=== PATIENT | female | born 1945 | race Caucasian/White ===

== ENCOUNTER → 2016-06-10 | Outpatient (CLI) | payer OTHER, MEDICARE | LOC: BHFA 14:30 | PROVIDERS: ATTEND Internal Medicine Cardiovascular Disease | DX: R06.09 Other forms of dyspnea (principal) ==

== ENCOUNTER → 2016-08-11 | Outpatient (CLI) | payer OTHER, MEDICARE ==
[~2016-08-11] MED LIST: IOPAMIDOL (ISOVUE-300) 100 ML BTL IV ONE
== END ==
LOC: FIMAGING 13:27
PROVIDERS: ATTEND Internal Medicine
DX: C55 Malignant neoplasm of uterus, part unspecified (principal)
CPT/HCPCS: 74177; Q9967

== ENCOUNTER → 2016-08-18 | Outpatient (CLI) | payer OTHER, MEDICARE | LOC: BHFA 13:15 | PROVIDERS: ATTEND Internal Medicine Interventional Cardiology | DX: I36.1 Nonrheumatic tricuspid (valve) insufficiency (principal) ==

== ENCOUNTER → 2017-02-07 | Outpatient (CLI) | payer OTHER, MEDICARE ==
[~2017-02-07] MED LIST changes: -IOPAMIDOL (ISOVUE-300) 100 ML BTL IV ONE; +LIDOCAINE 1% 300 MG/30 ML SDV ONE
== END ==
LOC: FIMAGING 12:19
PROVIDERS: ATTEND Internal Medicine
PROC: 0G9K3ZX Drainage of Thyroid Gland, Percutaneous Approach, Diagnostic (ICD-10-PCS; principal; 2017-02-07)
DX: E04.1 Nontoxic single thyroid nodule (principal); Q85.8 Other phakomatoses, not elsewhere classified; Z15.01 Genetic susceptibility to malignant neoplasm of breast; Z85.41 Personal history of malignant neoplasm of cervix uteri

== ENCOUNTER → 2017-05-24 | Outpatient (CLI) | payer OTHER, MEDICARE | LOC: FIMAGING 08:24 | PROVIDERS: ATTEND Surgery | DX: K44.9 Diaphragmatic hernia without obstruction or gangrene (principal); K21.9 Gastro-esophageal reflux disease without esophagitis; K22.8 Other specified diseases of esophagus ==

== ENCOUNTER → 2017-05-30 | Outpatient (CLI) | payer OTHER, MEDICARE | LOC: BHFA 14:30 | PROVIDERS: ATTEND Internal Medicine Cardiovascular Disease | DX: Z01.810 Encounter for preprocedural cardiovascular examination (principal); I47.1 Supraventricular tachycardia; I45.2 Bifascicular block ==

== ENCOUNTER → 2017-06-02 | Outpatient (CLI) | payer OTHER, MEDICARE ==
[~2017-06-02] MED LIST changes: -LIDOCAINE 1% 300 MG/30 ML SDV ONE; +ONDANSETRON 4 MG/2 ML VIAL ONE; +REGADENOSON 0.4 MG/5 ML SYR IVP ONE
--- NOTE | 2017-06-02 14:47 | PDCARST ---
CAR Stress Test Results Type of Stress Test: Lexiscan stress test Indication: preop/dyspnea Description of Procedure: After informed consent was obtained, pt was established to ECG, blood pressure, HR and oximetry monitoring. STRESS EKG AND HEMODYNAMIC DATA. Resting heart rate: 50 BPM. Resting ECG: SR. Resting blood pressure: 110/72 mmHg. O2 saturation at rest: 86% corrected 95% with deep breaths. Peak heart rate: 87 BPM. Peak blood pressure: 106/64 mmHg. Arrhythmias: SR. Symptoms: The patient experienced no typical symptoms of angina during stress or recovery. Stress/Infusion ECG: No change in rhythm with no significant ST/T wave changes. Stress/infusion O2 saturation: 98% Impression: Uneventful Lexiscan infusion. Conclusion: Await nuclear images.
== END ==
LOC: FIMAGING 11:20
PROVIDERS: ATTEND Physician Assistant Medical
DX: R94.39 Abnormal result of other cardiovascular function study (principal); I47.1 Supraventricular tachycardia
CPT/HCPCS: 78452; 93017; A9500; J2405; J2785

== ENCOUNTER 2017-06-06 07:38 | Day surgery (SDC) | payer OTHER, MEDICARE ==
[2017-06-06] MEDS ORDERED: ASPIRIN EC 325 MG TAB PO ONE (07:45)
[2017-06-06] MEDS ORDERED: diphenhydrAMINE 25 MG CAP PO ONE (07:45)
[2017-06-06] MEDS ORDERED: FAMOTIDINE 20 MG TAB PO ONE (07:45)
[2017-06-06] MEDS ORDERED: NS 1,000 ML IV ONE (07:45)
[2017-06-06] MEDS ORDERED: DIAZEPAM 5 MG TAB PO ONE (07:45)
[2017-06-06] MEDS ORDERED: LIDOCAINE 1% 300 MG/30 ML SDV ONE (08:00)
[2017-06-06] MEDS ORDERED: fentaNYL 100 MCG/2 ML INJ ONE (08:00)
[2017-06-06] MEDS ORDERED: MIDAZOLAM 2 MG/2 ML VIAL ONE (08:01)
[2017-06-06] MEDS ORDERED: IOPAMIDOL (ISOVUE-370) 150 ML BTL IV ONE (08:01)
--- NOTE | 2017-06-06 08:03 | CPEKG ---
Heart Rate: 58 RR Interval: 1034 P-R Interval: 160 QRSD Interval: 160 QT Interval: 512 QTC Interval: 504 P [place]: 31 QRS [place]: -63 T Wave [place]: -15 EKG Severity - ABNORMAL ECG - EKG Impression: SINUS RHYTHM EKG Impression: RIGHT BUNDLE BRANCH BLOCK EKG Impression: RBBB is new in comparison to prior ecg Electronically Signed By: Benji Sparrow 06-Jun-2017 09:55:17
--- NOTE | 2017-06-06 08:06 | PDHPUP ---
History & Physical Update H&P update statement: This history and physical update is based on an assessment of the patient which was completed after admission or registration (within 24 hours), but prior to the surgery/procedure. H&P update: H&P reviewed & patient examined, no change in patient's condition since H&P completed
--- NOTE | 2017-06-06 08:07 | PDPROPOC ---
Sedation Plan of Care Sedation Plan of Care: mental status noted, patient educated of risks, benefits , alternatives, patient can tolerate sedation ASA Classification: ASA 2 Planned drugs: fentanyl, midazolam Mallampati Score: Class 2 Mallampati Reference Image: Patient passed 3-3-2 rule?: Yes
[2017-06-06 08:22] LABS: PLATELET COUNT 159 10^3/uL (150-400)
[2017-06-06 08:39] LABS: INR 0.96 (0.83-1.16)
--- NOTE | 2017-06-06 10:42 | CPIP ---
[f rep st] INVASIVE CARDIAC PROCEDURE DATE OF PROCEDURE: 06/06/2017 INDICATION FOR PROCEDURE: Positive stress test, dyspnea on exertion. PROCEDURE: 1. Nonselective right groin sheathogram. 2. Bilateral selective coronary angiography. 3. Left heart catheterization. 4. Left ventriculogram. HISTORY: Briefly, this is a 71-year-old female with history of dyspnea on exertion and positive stre ss test. The patient was scheduled to have a hiatal hernia surgery repair. However, given her stres s test findings, patient consented for a left heart catheterization. DESCRIPTION OF PROCEDURE: After informed consent, the patient was brought to [facility] where the right groin was prepped and draped in a sterile fashion. Using lidocaine, a short 6-Fren ch sheath was introduced into the right femoral artery, verified angiographically. Through this 6-Fr ench sheath, a JL4 catheter was advanced to the left coronary artery. Images of the left coronary ar ishaan revealed normal left main. Left circumflex artery gave off a small marginal proximally and a la rger marginal off distally which was healthy and free of disease. LAD was a long vessel which wrappe d around the apex. The LAD gave off multiple medium-sized diagonal arteries proximally which were he althy and free of disease. After the images were obtained, the JL4 catheter was removed . The JR4 catheter was advanced to the right coronary artery. Images of the right coronary artery rev ealed normal os prox, mid, RCA, appeared to be healthy and free of disease. After the imag es were obtained, the JR4 catheter removed. The pigtail catheter was advanced in the left ventricle. EDP was 16 mmHg. Left ventriculogram in the FLANAGAN projection showed an EF of 65% with no wall motion abnormalities. Pigtail catheter was removed over the 0.035 wire. The right groin was closed with a 6-Bahamian Angio-Seal. The patient tolerated the procedure well with no complications. IMPRESSION: 1. Essentially normal coronary arteries. 2. Normal ejection fraction. PLAN: The patient's stress test was a false-positive. She will be kept for 3 hours, bed rest today and then she can proceed with her surgery as scheduled. /[id number]/MODL
[2017-06-07] MEDS ORDERED: ROCURONIUM 100 MG/10 ML VIAL ONE (12:53)
[2017-06-07] MEDS ORDERED: DEXAMETHASONE 4 MG/ML VIAL ONE (12:53)
[2017-06-07] MEDS ORDERED: ONDANSETRON 4 MG/2 ML VIAL ONE (12:53)
== END 2017-06-06 12:42 | disposition home or self-care (01) ==
LOC: FCATH 07:38
PROVIDERS: ATTEND Internal Medicine Cardiovascular Disease
PROC: 4A023N7 Measurement of Cardiac Sampling and Pressure, Left Heart, Percutaneous Approach (ICD-10-PCS; principal; 2017-06-06)
PROC: B2151ZZ Fluoroscopy of Left Heart using Low Osmolar Contrast (ICD-10-PCS; principal; 2017-06-06)
PROC: B2111ZZ Fluoroscopy of Multiple Coronary Arteries using Low Osmolar Contrast (ICD-10-PCS; principal; 2017-06-06)
DX: Z01.810 Encounter for preprocedural cardiovascular examination (principal); R94.31 Abnormal electrocardiogram [ECG] [EKG]; R06.00 Dyspnea, unspecified; I47.1 Supraventricular tachycardia; Z95.0 Presence of cardiac pacemaker; I45.2 Bifascicular block
CPT/HCPCS: C1760; J1100; J1644; J2250; J2405; J3010; Q9967

== ENCOUNTER 2017-06-07 09:49 | Observation (INO) | payer OTHER, MEDICARE ==
[2017-06-07] MEDS ORDERED: BUPIVACAINE 0.5% 10 ML SDV ONE (10:18)
[2017-06-07] MEDS ORDERED: ceFAZolin 1 GM/5 ML SYR ONE (10:18)
[2017-06-07] MEDS ORDERED: HEPARIN 1000 UNIT/1 ML MDV ONE (10:18)
[2017-06-07] MEDS ORDERED: LIDOCAINE 1% 2 ML INJ ID PRN (10:19)
[2017-06-07] MEDS ORDERED: LR 1,000 ML IV ONE (10:19)
[2017-06-07] MEDS ORDERED: MIDAZOLAM 2 MG/2 ML VIAL IVP ONE (12:04)
--- NOTE | 2017-06-07 12:06 | PDANEPAE ---
ANE History of Present Illness 71 yo for lap stephanie ANE Past Medical History - Cardiovascular History Hx Hypertension: No Hx Arrhythmias: Yes Hx Chest Pain: No Hx Coronary Artery / Peripheral Vascular Disease: No Hx CHF / Valvular Disease: No Hx Palpitations: No - Pulmonary History Hx COPD: No Hx Asthma/Reactive Airway Disease: No Hx Recent Upper Respiratory Infection: No Hx Oxygen in Use at Home: Yes O2 in Use at Home (L/minute): 3L at noc Hx Sleep Apnea: Yes Sleep Apnea Screening Result - Last Documented: Positive - Neurologic History Hx Cerebrovascular Accident: No Hx Seizures: No Hx Dementia: No - Endocrine History Hx Diabetes: Yes - Renal History Hx Renal Disorders: No - Liver History Hx Hepatic Disorders: No - Neurological & Psychiatric Hx Hx Neurological and Psychiatric Disorders: Yes Neurological / Psychiatric History Comment: neuropathy,anxiety - Cancer History Hx Cancer: Yes Cancer History Comment: uterine - Congenital Disorder History Hx Congenital Disorders: No - GI History Hx Gastrointestinal Disorders: Yes Gastrointestinal History Comment: reflux,gerd - Other Health History Other Health History: small area on bottom of right foot - Chronic Pain History Chronic Pain: Yes (back pain) - Surgical History Prior Surgeries: 01/24 lami, uterine ca total hysterectomy bilat oophorectomy . 09/22 PPM. ablation for svt ANE Review of Systems Review of Systems: - Exercise capacity METS (RN): 3 METS - Pacemaker Pacemaker Type: Permanent Pacer/Defib Pacemaker Timekeeper: Medtronic Pacemaker Model: ADDRL1 ANE Patient History - Allergies Allergies/Adverse Reactions: cyclobenzaprine Allergy (Intermediate, Verified 06/06/17 16:59) Other-Enter Comments Penicillins Allergy (Intermediate, Verified 06/06/17 16:21) Rash - Home Medications Home medications: home medication list seen and reviewed Home Medications: Multivitamins [Multivitamin (*)] 1 tab PO DAILY 08/13/13 [Last Taken 06/06/17] [place]-3 Fatty Acids [Fish Oil 1000 mg (*)] 1,000 mg PO BID 08/13/13 [Last Taken 06/05/17] Diltiazem HCl [Cartia XT 180mg] 180 mg PO BID 11/03/14 [Last Taken 06/07/17 07: 30] Gabapentin [Neurontin 300 MG (*)] 300 mg PO TID 11/03/14 [Last Taken 06/06/17] Insulin Detemir [Levemir] 22 unit SQ BID 11/03/14 [Last Taken 06/07/17 07:30 14 units] Nebivolol HCl [Bystolic 5 mg (*)] 1 tab PO DAILY 11/03/14 [Last Taken 06/07/17 07:30] Canagliflozin [Invokana] 100 mg PO DAILY 11/12/15 [Last Taken 06/06/17] Furosemide [Lasix 40 MG (*)] 40 mg PO DAILY 11/12/15 [Last Taken 06/06/17] Atorvastatin Calcium [Lipitor 20 mg (*)] 20 mg PO DAILY 06/06/17 [Last Taken ] Cholecalciferol Vit D3 [Vitamin D3 2000 units tab (OTC)] 2,000 units PO DAILY [Last Taken 06/06/17] DULoxetine [Cymbalta 30 MG (*)] 30 mg PO DAILY 06/06/17 [Last Taken 06/06/17] Herbals/Supplements -Info Only 1 ea PO DAILY 06/06/17 [Last Taken 05/31/17] Insulin Lispro [Humalog] 15 - 20 unit SQ TIDMEAL 06/06/17 [Last Taken 06/06/17 17:00] Levothyroxine [Synthroid 50 mcg (*)] 50 mcg PO DAILY06 06/06/17 [Last Taken ] Potassium Cl [Klor-Con] 10 meq PO DAILY 06/06/17 [Last Taken 06/06/17] Ranitidine HCl [Zantac] 150 mg PO BID 06/06/17 [Last Taken 06/07/17 07:30] Triamcinolone 0.1% [Triamcinolone 0.1% Cream (*)] 1 kathy TP DAILY PRN 06/06/17 [ Last Taken 06/07/17 08:30] traMADol [Ultram 50 mg (*)] 50 mg PO Q6HRS PRN 06/06/17 [Last Taken 06/06/17] - NPO status NPO Status: no food or drink >8 hours NPO Since - Liquids (Date): 06/06/17 NPO Since - Liquids (Time): 20:00 NPO Since - Solids (Date): 06/06/17 NPO Since - Solids (Time): 17:00 - Smoking Hx Smoking Status: Never smoked - Family Anes Hx Family Hx Anesthesia Complications: none ANE Labs/Vital Signs - Vital Signs Blood Pressure: 127/66 Heart Rate: 58 Respiratory Rate: 16 O2 Sat (%): 94 Height: 5 ft 9 in Weight: 113.398 kg ANE Physical Exam - Airway Neck exam: FROM Mallampati Score: Class 2 Mouth exam: poor dentition - Pulmonary Pulmonary: no respiratory distress - Cardiovascular Cardiovascular: regular rate and rhythym - ASA Status ASA Status: III ANE Anesthesia Plan Anesthesia Plan: general endotracheal anesthesia
[2017-06-07] MEDS ORDERED: CLINDAMYCIN 900 MG/DEXTROSE 50 ML IV ONE (12:09)
[2017-06-07] MEDS ORDERED: PROPOFOL/EMULSION 500 MG/50 ML BOTTLE IV ONE (12:09)
[2017-06-07] MEDS ORDERED: fentaNYL 250 MCG/5 ML INJ ONE (12:09)
[2017-06-07] MEDS ORDERED: SCOPOLAMINE HYDROBROMIDE 1 MG/3 DAYS PATCH TD SCH (12:15)
[2017-06-07] MEDS ORDERED: PROMETHAZINE HCL 25 MG/ML INJ IVP PRN (14:19)
[2017-06-07] MEDS ORDERED: NALOXONE HCL 0.4 MG/ML INJ IVP PRN (14:19)
[2017-06-07] MEDS ORDERED: ONDANSETRON 4 MG/2 ML VIAL IVP PRN ×2 (14:19→14:29)
[2017-06-07] MEDS ORDERED: ALBUTEROL 3 ML DEYVIAL IH PRN (14:19)
--- NOTE | 2017-06-07 14:21 | POSTOPPROG ---
Post Op Note Date of Operation: 06/07/17 Surgeon: Joey Redman Construction Skills Teacher: Mabel Farley Anesthesiologist: Danilo Ayala Anesthesia: GET(General Endotracheal) Pre-op Diagnosis: Hiatal hernia, GERD Post-op Diagnosis: same Procedure: Laparoscopic hiatal hernia repair c Jameson fundoplication Findings: medium hernia Inf/Abcess present in the surg proc area at time of surgery?: No EBL: Minimal Complications: none Specimen(s): none
--- NOTE | 2017-06-07 14:21 | POSTANESTH ---
Post Anesthetic Evaluation Cardiovascular Status: Normal, Stable Respiratory Status: Tx Decrease in SpO2 Level of Consciousness/Mental Status: Can Participate in Eval Pain Control: Adequate, Prn Tx Ordered Nausea/Vomiting Control: Adequate, Prn Tx Ordered Complications Possibly Related to Anesthesia: None Noted
[2017-06-07] MEDS ORDERED: traMADol 50 MG TAB PO PRN (14:24)
[2017-06-07] MEDS ORDERED: TRIAMCINOLONE 0.1% TP PRN (14:24)
[2017-06-07] MEDS ORDERED: HYDROmorphONE/DILAUDID 1 MG/ML INJ IVP PRN (14:29)
[2017-06-07] MEDS ORDERED: OXYCODONE/APAP 5/325 TAB PO PRN (14:29)
[2017-06-07] MEDS ORDERED: NS W/ 20 KCl/L 1,000 ML IV SCH (14:30)
[2017-06-07] MEDS ORDERED: KETOROLAC 15 MG/1 ML SDV ONE (15:00)
[2017-06-07] MEDS ORDERED: fentaNYL 100 MCG/2 ML INJ ONE ×2 (15:00→15:43)
[2017-06-07] MEDS: fentaNYL 100 MCG/2 ML INJ IVP PRN ×3 (15:03→15:45)
[2017-06-07] MEDS: KETOROLAC 15 MG/1 ML SDV IVP SCH ×2 (15:03→23:17)
[2017-06-07] MEDS ORDERED: HYDROmorphONE/DILAUDID 2 MG/ML INJ IVP PRN (15:05)
[2017-06-07] MEDS ORDERED: GABAPENTIN 300 MG PO SCH (16:00)
[2017-06-07] MEDS ORDERED: TRIAMCINOLONE 0.1% 15 GM CRTUBE TP PRN (16:10)
[2017-06-07] MEDS: INSULIN LISPRO 100 UNIT/ML SC SCH (17:46)
[2017-06-07] MEDS ORDERED: NON-FORMULARY NEW DRUG (Insulin Lispro [Humalog] 0 UNIT) SQ SCH (18:00)
[2017-06-07] MEDS: DILTIAZEM CD 180 MG CAP PO SCH (20:58)
[2017-06-07] MEDS ORDERED: NON-FORMULARY NEW DRUG (Diltiazem Hcl [Cartia Xt 180mg] 180 MG) PO SCH (21:00)
[2017-06-07] MEDS: GABAPENTIN 300 MG CAP PO SCH (21:00)
[2017-06-07] MEDS ORDERED: NON-FORMULARY NEW DRUG (Ranitidine Hcl [Zantac] 150 MG) PO SCH (21:00)
[2017-06-07] MEDS ORDERED: FAMOTIDINE 20 MG TAB PO SCH (21:00)
[2017-06-07] MEDS: Ranitidine Hcl [Zantac] 150 MG PO SCH (21:01)
[2017-06-07] MEDS: Insulin Detemir [Levemir] 22 UNIT SQ SCH (21:04)
[2017-06-08 04:54] VITALS: BP 115/61; RESP 16
[2017-06-08] MEDS: KETOROLAC 15 MG/1 ML SDV IVP SCH ×2 (05:26→12:54)
[2017-06-08] MEDS ORDERED: LEVOTHYROXINE 50 MCG TAB PO SCH (06:00)
[2017-06-08] MEDS ORDERED: LEVOTHYROXINE 50 MCG PO SCH (06:00)
[2017-06-08] MEDS: DILTIAZEM CD 180 MG CAP PO SCH (06:31)
[2017-06-08] MEDS: Ranitidine Hcl [Zantac] 150 MG PO SCH (06:32)
[2017-06-08] MEDS: GABAPENTIN 300 MG CAP PO SCH ×2 (06:36→12:49)
[2017-06-08 07:58] VITALS: PULSE 62; TEMP 98.3; O2SAT 95
[2017-06-08] MEDS ORDERED: [UNRECOGNIZED DRUG - OTHER] PO SCH (09:00)
[2017-06-08] MEDS ORDERED: DULoxetine 30 MG CAP PO SCH (09:00)
[2017-06-08] MEDS ORDERED: POTASSIUM CL 10 MEQ TAB PO SCH (09:00)
[2017-06-08] MEDS ORDERED: FUROSEMIDE 40 MG PO SCH (09:00)
[2017-06-08] MEDS ORDERED: ENOXAPARIN 40 MG/0.4 ML SYR SC SCH (09:00)
[2017-06-08] MEDS ORDERED: ATORVASTATIN CALCIUM 20 MG TAB PO SCH (09:00)
[2017-06-08] MEDS ORDERED: NON-FORMULARY NEW DRUG (Atorvastatin Calcium [Lipitor 20 Mg (*)] 20 MG) PO SCH (09:00)
[2017-06-08] MEDS ORDERED: NEBIVOLOL HCL 5 MG TAB PO SCH (09:00)
[2017-06-08] MEDS ORDERED: FUROSEMIDE 40 MG TAB PO SCH (09:00)
[2017-06-08] MEDS ORDERED: CHOLECALCIFEROL VIT D3 2,000 UNITS TAB/CAP PO SCH (09:00)
[2017-06-08] MEDS ORDERED: NEBIVOLOL HCL PO SCH (09:00)
[2017-06-08] MEDS ORDERED: POTASSIUM CL 10 MEQ PO SCH (09:00)
[2017-06-08] MEDS ORDERED: DULOXETINE 30 MG PO SCH (09:00)
[2017-06-08] MEDS ORDERED: Canagliflozin [Invokana] 100 MG PO SCH (09:00)
[2017-06-08] MEDS: Insulin Detemir [Levemir] 22 UNIT SQ SCH (09:08)
[2017-06-08] MEDS: INSULIN LISPRO 100 UNIT/ML SC SCH ×2 (09:10→12:48)
--- NOTE | 2017-06-08 10:16 | SOAPPROG ---
SOAP Progress Note Assessment/Plan: Assessment/Plan: 71 Y F s/p lap hiatal hernia repair anc stephanie fundoplication. POD#1. Doing well. Labs ok. AFVSS. Wounds intact. Tolerating clears. Managing own diabetes. Dispo: home later today if does well with advancing diet. S: motivated to go home. not much pain. swallowing fine. O: alert, nad ctab anteriorly rrr abd soft, +BS, inc cdi 06/08/17 10:15 Objective: Vital Signs Temp Pulse Resp BP Pulse Ox 36.8 C 62 16 115/61 95 06/08/17 07:55 06/08/17 07:55 06/08/17 04:50 06/08/17 06:31 06/08/17 07:55 Laboratory Results 06/08/17 04:33 06/08/17 04:33 06/07/17 06/08/17 06/09/17 05:59 05:59 05:59 Intake Total 2403.5 250 Output Total 1250 900 Balance 1153.5 -650 ICD10 Worksheet Patient Problems: Problems Problem Status Onset Supraventricular tachycardia Acute
--- NOTE | 2017-06-08 12:42 | ASMTLACE ---
SAMIRA Comorbidities - select Answers: Diabetes (uncontrolled or all that apply controlled) # of Emergency department Answers: 0 visits in the last 6 months Score: 1 Date Signed: 06/08/2017 12:41 PM Electronically Signed By:Amy Gambino LCSW
--- NOTE | 2017-06-08 12:43 | ASMTCMCOM ---
CM Note CM Note Notes: Pt had lap hiatal hernia repai and will DC today with noDC needs. Date Signed: 06/08/2017 12:42 PM Electronically Signed By:Amy Gambino LCSW
[2017-06-09] MEDS ORDERED: HEPARIN 5,000 UNIT/0.5 ML SYR SC SCH (22:00)
--- NOTE | 2017-06-10 14:28 | GOP ---
[f rep st] OPERATIVE REPORT DATE OF OPERATION: 06/07/2017 SURGEON: Joye Redman MD PREOPERATIVE DIAGNOSIS: Large hiatal hernia with gastroesophageal reflux. POSTOPERATIVE DIAGNOSIS: Large hiatal hernia with gastroesophageal reflux. PROCEDURE PERFORMED: Laparoscopic hiatal hernia repair and Jameson fundoplication. FINDINGS: Patient was found to have at least half of her stomach in the chest, but the esophagus would mobilize down into the chest. DESCRIPTION OF PROCEDURE: Patient taken to the operating room where she received satisfactory general endotracheal anesthesia. She was placed in supine position, prepped and draped in usual sterile fashion. An upper abdominal midline incision was made. A Veress needle inserted. Pneumoperitoneum was established. Trocar was introduced. Laparoscope introduced. Good visualization was obtained. Further trocars were placed in the upper abdomen under direct vision. The stomach was then reduced out of the chest without much difficulty. The hiatus was exposed with the Harmonic Scalpel. Both right and left leisa were dissected free and exposed. The esophagus was exposed in the chest, and it was freed up and mobilized for several centimeters, and circumferentially both anterior and posterior crura were skeletonized and exposed. Esophagus was elevated up. The crura were then approximated with interrupted 0 Ethibond sutures. This was done over a 52 bougie dilator. The hiatus was made as snug. The greater curvature of the stomach was then mobilized by dividing the short gastrics with the Harmonic Scalpel. A retroesophageal tunnel had been created and the fundus was passed around underneath the esophagus and a fundoplication wrap was then done with interrupted 0 Ethibond sutures, securing the anterior wall of the stomach to the anterior wall of the esophagus to the fundoplication wrap. This was done with 3 sutures all in a similar manner, and appeared to be hemostatic. The trocars were removed under direct vision. Trocar sites were closed with 4- 0 Monocryl subcuticular sutures. All wounds were infiltrated with 0.5% Marcaine. She tolerated the procedure well. There were no complications. She was taken to the recovery room in good condition. /[id number]/MODL MTDD
== END 2017-06-08 14:21 | disposition home or self-care (01) ==
LOC: F3E 09:49 → F1N 16:00
PROVIDERS: ADMIT Surgery; ATTEND Surgery
DX: K44.9 Diaphragmatic hernia without obstruction or gangrene (principal); E11.22 Type 2 diabetes mellitus with diabetic chronic kidney disease; N18.9 Chronic kidney disease, unspecified; I47.1 Supraventricular tachycardia; I45.2 Bifascicular block; I12.9 Hypertensive chronic kidney disease with stage 1 through stage 4 chronic kidney disease, or unspecified chronic kidney disease; Z95.0 Presence of cardiac pacemaker; Z85.42 Personal history of malignant neoplasm of other parts of uterus
CPT/HCPCS: 43281; J0690; J1885; J2250; J2704; J3010

== ENCOUNTER → 2017-10-05 | Outpatient (CLI) | payer OTHER, MEDICARE | LOC: FIMAGING 08:12 | PROVIDERS: ATTEND Surgery | DX: K22.9 Disease of esophagus, unspecified (principal) ==

== ENCOUNTER 2017-11-10 07:00 | Day surgery (SDC) | payer OTHER, MEDICARE ==
[2017-11-10] MEDS ORDERED: CLINDAMYCIN 900 MG/DEXTROSE 50 ML IV ONE (07:12)
[2017-11-10] MEDS ORDERED: LR 1,000 ML IV ONE (07:12)
[2017-11-10] MEDS ORDERED: LR 500 ML IV PRN (08:49)
[2017-11-10] MEDS ORDERED: ONDANSETRON 4 MG/2 ML VIAL IVP PRN (08:49)
[2017-11-10] MEDS ORDERED: PROMETHAZINE HCL 25 MG/ML INJ IVP PRN (08:49)
[2017-11-10] MEDS ORDERED: NALOXONE HCL 0.4 MG/ML INJ IVP PRN (08:49)
[2017-11-10] MEDS ORDERED: fentaNYL 100 MCG/2 ML INJ IVP PRN (08:49)
--- NOTE | 2017-11-10 08:49 | PDANEPAE ---
ANE Past Medical History - Cardiovascular History Hx Hypertension: No Hx Arrhythmias: Yes Hx Chest Pain: Yes Hx Coronary Artery / Peripheral Vascular Disease: No Hx CHF / Valvular Disease: No Hx Palpitations: No Cardiovascular History Comment: PACEMAKER 2013. PREV ABLATION FOR TACHYCARDIA - Pulmonary History Hx COPD: No Hx Asthma/Reactive Airway Disease: No Hx Recent Upper Respiratory Infection: No Hx Oxygen in Use at Home: Yes O2 in Use at Home (L/minute): 2.5 Hx Sleep Apnea: Yes Sleep Apnea Screening Result - Last Documented: Positive Pulmonary History Comment: USES BPAP FOR SLEEP APNEA. INSTRUCTED TO BRING DOP - Neurologic History Hx Cerebrovascular Accident: No Hx Seizures: No Hx Dementia: No - Endocrine History Hx Diabetes: Yes - Renal History Hx Renal Disorders: No - Liver History Hx Hepatic Disorders: No - Neurological & Psychiatric Hx Hx Neurological and Psychiatric Disorders: Yes Neurological / Psychiatric History Comment: neuropathy,. anxiety - Cancer History Hx Cancer: Yes Cancer History Comment: uterine. BREAST - Congenital Disorder History Hx Congenital Disorders: No - GI History Hx Gastrointestinal Disorders: Yes Gastrointestinal History Comment: NICK FUNDOPLICATION 05/2017. CURRENTLY FEELING LIKE MEDS/FOOD. CAN BE FELT IN CHEST. BURPING CURRENTLY - Other Health History Other Health History: small area on bottom of right foot. CATARACTS. LOWER RT FRONT TOOTH IS LOOSE. ANEMIA POST CHEMO - Chronic Pain History Chronic Pain: No - Surgical History Prior Surgeries: NICK FUNDOPLICATION 05/2017. LAMINECTOMY 01/24. total hysterectomy/BSO FOR CA. ablation for svt 2012. LT BREAST LUMPECTOMY WITH REMVL LYMPH NODES. ROBERT. PACEMAKER 09/2013 ANE Review of Systems Review of Systems: - Exercise capacity METS (RN): 2 METS - Pacemaker Pacemaker Oyster Bed Worker: Medtronic Date Pacemaker Last Checked: 10/27/17 ANE Patient History - Allergies Allergies/Adverse Reactions: cyclobenzaprine Allergy (Intermediate, Verified 06/06/17 16:59) Other-Enter Comments Penicillins Allergy (Intermediate, Verified 06/06/17 16:21) Rash - Home Medications Home medications: home medication list seen and reviewed Home Medications: Multivitamins [Multivitamin (*)] 1 tab PO DAILY 08/13/13 [Last Taken 1 Week Ago ~11/03/17] [place]-3 Fatty Acids [Fish Oil 1000 mg (*)] 1,000 mg PO BID 08/13/13 [Last Taken 1 Week Ago ~11/03/17] Diltiazem HCl [Cartia XT 180mg] 180 mg PO BID 11/03/14 [Last Taken 11/10/17 05: 00] Gabapentin [Neurontin 300 MG (*)] 300 mg PO TID 11/03/14 [Last Taken 11/10/17 05 :00] Insulin Detemir [Levemir] 22 unit SQ BID 11/03/14 [Last Taken 11/10/17 05:00] Nebivolol HCl [Bystolic 5 mg (*)] 1 tab PO DAILY 11/03/14 [Last Taken 11/10/17 05:00] Canagliflozin [Invokana] 100 mg PO DAILY 11/12/15 [Last Taken 11/09/17 05:00] Furosemide [Lasix 40 MG (*)] 40 mg PO DAILY 11/12/15 [Last Taken 11/09/17 05:00] Atorvastatin Calcium [Lipitor 20 mg (*)] 20 mg PO DAILY 06/06/17 [Last Taken 1 Week Ago ~11/03/17] Cholecalciferol Vit D3 [Vitamin D3 2000 units tab (OTC)] 2,000 units PO DAILY [Last Taken 1 Week Ago ~11/03/17] DULoxetine [Cymbalta 30 MG (*)] 30 mg PO DAILY 06/06/17 [Last Taken 11/10/17 05: 00] Herbals/Supplements -Info Only 1 ea PO DAILY 06/06/17 [Last Taken 1 Week Ago ~] Insulin Lispro [Humalog] 15 - 20 unit SQ TIDMEAL 06/06/17 [Last Taken 11/09/17 18:00] Levothyroxine [Synthroid 50 mcg (*)] 50 mcg PO DAILY06 06/06/17 [Last Taken 05/29 05:00] Potassium Cl [Klor-Con 10 meq (RX)] 10 meq PO DAILY 06/06/17 [Last Taken 1 Week Ago ~11/03/17] Ranitidine HCl [Zantac] 150 mg PO DAILY AT 6PM 06/06/17 [Last Taken 1 Week Ago ~ 11/03/17] Triamcinolone 0.1% [Triamcinolone 0.1% Cream (*)] 1 kathy TP DAILY PRN 06/06/17 [ Last Taken 1 Week Ago ~11/03/17] traMADol [Ultram 50 mg (*)] 50 mg PO HS 06/06/17 [Last Taken 11/09/17 20:00] Acetaminophen 500 mg PO 11/10/17 [Last Taken 11/09/17 20:00] - NPO status NPO Status: no food or drink >8 hours NPO Since - Liquids (Date): 11/10/17 NPO Since - Liquids (Time): 05:00 NPO Since - Solids (Date): 11/09/17 NPO Since - Solids (Time): 19:00 - Anes Hx Anes Hx: no prior problems - Smoking Hx Smoking Status: Never smoked - Family Anes Hx Family Hx Anesthesia Complications: none ANE Labs/Vital Signs - Vital Signs Blood Pressure: 134/75 Heart Rate: 50 Respiratory Rate: 15 O2 Sat (%): 94 Height: 175.26 cm Weight: 109.769 kg ANE Physical Exam - Airway Neck exam: FROM Mallampati Score: Class 3 Mouth exam: poor dentition - Pulmonary Pulmonary: no respiratory distress, no rales or rhonchi, clear to auscultation - Cardiovascular Cardiovascular: regular rate and rhythym, no murmur, rub, or gallop - ASA Status ASA Status: III ANE Anesthesia Plan Anesthesia Plan: GA with mask
[2017-11-10] MEDS ORDERED: PROPOFOL 200 MG/20 ML VIAL ONE ×2 (08:54→09:09)
--- NOTE | 2017-11-10 09:26 | POSTANESTH ---
Post Anesthetic Evaluation Cardiovascular Status: Similar to Pre-Op Cond Respiratory Status: Normal, Stable, Similar to Pre-op Cond. Level of Consciousness/Mental Status: Can Participate in Eval, Mildly Sleepy, Arousable Pain Control: Adequate, Prn Tx Ordered Nausea/Vomiting Control: Adequate, Prn Tx Ordered Complications Possibly Related to Anesthesia: None Noted
--- NOTE | 2017-11-10 10:13 | POSTOPPROG ---
Post Op Note Date of Operation: 11/10/17 Surgeon: Joey Redman Contracts Representative: None Anesthesiologist: Porsha Anesthesia: IV Sedation Pre-op Diagnosis: GERD, dysphagia Post-op Diagnosis: same Indication: same Procedure: EGD Findings: Possible slip of stephanie fundoplication wrap, might need revision Inf/Abcess present in the surg proc area at time of surgery?: No EBL: Minimal
[2017-11-10 10:24] VITALS: BP 113/72
--- NOTE | 2017-11-12 19:56 | GOP ---
[f rep st] OPERATIVE REPORT DATE OF OPERATION: 11/10/2017 SURGEON: Joey Redman MD PREOPERATIVE DIAGNOSIS: Dysphagia with possible recurrent hiatal hernia. POSTOPERATIVE DIAGNOSIS: Dysphagia with possible recurrent hiatal hernia. PROCEDURE PERFORMED: Esophagogastroduodenoscopy. FINDINGS: Patient was found to have a possible slipped Jameson with recurrent herniation but not a he rniation back into the chest. DESCRIPTION OF PROCEDURE: Patient was taken to the operating room, where she received satisfactory I V sedation monitored anesthesia care by Dr. Story. She was placed in the left lateral decubitus posi tion. Endoscope was then passed with minimal difficulty down the esophagus. The GE junction appeare d to be in place. However, just below that, there appeared to be a possible recurrent herniation and then another tight spot for the Jameson wrap and then the stomach which appeared to be normal as did the duodenum. It was well examined. The scope was retroflexed to evaluate the GE junction. The Nis sen wrap appeared to be still intact. May be a possible herniation up through the Jameson wrap. The anatomy was somewhat difficult to describe exactly. Scope was withdrawn. She tolerated the procedur e well. There were no complications. Taken to the recovery room in good condition. /[id number]/MODL
== END 2017-11-10 11:00 | disposition home or self-care (01) ==
LOC: FSGY 07:00
PROVIDERS: ATTEND Surgery
PROC: 0DJ08ZZ Inspection of Upper Intestinal Tract, Via Natural or Artificial Opening Endoscopic (ICD-10-PCS; principal; 2017-11-10 08:45)
DX: K44.9 Diaphragmatic hernia without obstruction or gangrene (principal); R13.10 Dysphagia, unspecified
CPT/HCPCS: J2704

== ENCOUNTER 2017-12-20 05:45 | Observation (INO) | payer OTHER, MEDICARE ==
[2017-12-20] MEDS ORDERED: LIDOCAINE 1% 2 ML INJ ID PRN (06:07)
[2017-12-20] MEDS ORDERED: LR 1,000 ML IV ONE (06:07)
[2017-12-20] MEDS ORDERED: CLINDAMYCIN 900 MG/DEXTROSE 50 ML IV ONE (06:07)
[2017-12-20] MEDS ORDERED: PROPOFOL 200 MG/20 ML VIAL ONE (07:03)
[2017-12-20] MEDS ORDERED: fentaNYL 100 MCG/2 ML INJ ONE ×2 (07:03)
[2017-12-20] MEDS ORDERED: MIDAZOLAM 2 MG/2 ML VIAL IVP ONE (07:07)
[2017-12-20] MEDS ORDERED: ROCURONIUM 50 MG/5 ML VIAL ONE (07:08)
[2017-12-20] MEDS ORDERED: LIDOCAINE 2% 2 ML INJ ONE (07:08)
--- NOTE | 2017-12-20 07:09 | PDANEPAE ---
ANE History of Present Illness lap (likely open) nick fundoplication ANE Past Medical History - Cardiovascular History Hx Hypertension: No Hx Arrhythmias: Yes Hx Chest Pain: Yes Hx Coronary Artery / Peripheral Vascular Disease: No Hx CHF / Valvular Disease: No Hx Palpitations: No Cardiovascular History Comment: PACEMAKER 2013. PREV ABLATION FOR TACHYCARDIA - Pulmonary History Hx COPD: No Hx Asthma/Reactive Airway Disease: No Hx Recent Upper Respiratory Infection: No Hx Oxygen in Use at Home: Yes Hx Sleep Apnea: Yes Sleep Apnea Screening Result - Last Documented: Positive Pulmonary History Comment: USES BPAP FOR SLEEP APNEA. INSTRUCTED TO BRING DOP - Neurologic History Hx Cerebrovascular Accident: No Hx Seizures: No Hx Dementia: No - Endocrine History Hx Diabetes: Yes Hypothyroid: Yes Obesity: yes, moderate Endocrine History Comment: HYPOTHYROID. DM - Renal History Hx Renal Disorders: No - Liver History Hx Hepatic Disorders: No Hepatic History Comment: ROBERT - Neurological & Psychiatric Hx Hx Neurological and Psychiatric Disorders: Yes Neurological / Psychiatric History Comment: neuropathy,. anxiety - Cancer History Hx Cancer: Yes Cancer History Comment: uterine. BREAST - Congenital Disorder History Hx Congenital Disorders: No - GI History GERD: severe Hx Gastrointestinal Disorders: Yes Gastrointestinal History Comment: NICK FUNDOPLICATION 05/2017. CURRENTLY FEELING LIKE MEDS/FOOD. CAN BE FELT IN CHEST. BURPING CURRENTLY - Other Health History Other Health History: small area on bottom of right foot. CATARACTS. LOWER RT FRONT TOOTH IS LOOSE. ANEMIA POST CHEMO - Chronic Pain History Chronic Pain: No - Surgical History Prior Surgeries: EGD. NICK FUNDOPLICATION 05/2017. LAMINECTOMY 01/24. total hysterectomy/BSO FOR CA. ablation for svt 2012. LT BREAST LUMPECTOMY WITH REMVL LYMPH NODES. ROBERT. 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: [employer] Date Pacemaker Last Checked: 10-27-2017 ANE Patient History - Allergies Allergies/Adverse Reactions: cyclobenzaprine Allergy (Intermediate, Verified 12/19/17 15:39) Other-Enter Comments Penicillins Allergy (Intermediate, Verified 12/19/17 15:39) Rash - Home Medications Home medications: home medication list seen and reviewed Home Medications: Multivitamins [Multivitamin (*)] 1 tab PO DAILY 08/13/13 [Last Taken 12/15/17] Garrison-3 Fatty Acids [Fish Oil 1000 mg (*)] 1,000 mg PO BID 08/13/13 [Last Taken 12/15/17] Diltiazem HCl [Cartia XT 180mg] 180 mg PO BID 11/03/14 [Last Taken 12/20/17 04: 00] Gabapentin [Neurontin 300 MG (*)] 600 mg PO DAILY 11/03/14 [Last Taken 12/20/17 04:00] Insulin Detemir [Levemir] 17 - 18 unit SQ BID 11/03/14 [Last Taken 12/20/17 04: 00] Nebivolol HCl [Bystolic 5 mg (*)] 1 tab PO DAILY 11/03/14 [Last Taken 12/20/17 04:00] Furosemide [Lasix 40 MG (*)] 40 mg PO DAILY 11/12/15 [Last Taken 12/19/17 07:00] Atorvastatin Calcium [Lipitor 20 mg (*)] 20 mg PO DAILY 06/06/17 [Last Taken 02/26 04:00] Cholecalciferol Vit D3 [Vitamin D3 2000 units tab (OTC)] 2,000 units PO DAILY [Last Taken 12/15/17] Herbals/Supplements -Info Only 1 ea PO DAILY 06/06/17 [Last Taken 12/15/17] Insulin Lispro [Humalog] 15 - 20 unit SQ TIDMEAL 06/06/17 [Last Taken 12/19/17 18:00] Levothyroxine [Synthroid 50 mcg (*)] 50 mcg PO DAILY06 06/06/17 [Last Taken 02/26 04:00] Potassium Cl [Klor-Con 10 meq (RX)] 10 meq PO DAILY 06/06/17 [Last Taken 06:00] Ranitidine HCl [Zantac] 150 mg PO DAILY 06/06/17 [Last Taken 12/20/17 04:00] Triamcinolone 0.1% [Triamcinolone 0.1% Cream (*)] 1 kathy TP DAILY PRN 06/06/17 [ Last Taken 12/18/17] traMADol [Ultram 50 mg (*)] 50 mg PO HS 06/06/17 [Last Taken 12/19/17 21:00] Acetaminophen 500 mg PO Q6H PRN 11/10/17 [Last Taken 12/17/17] Canagliflozin [Invokana] 300 mg PO DAILY 12/19/17 [Last Taken 12/19/17 08:00] DULoxetine [Cymbalta 60 MG (*)] 60 mg PO DAILY 12/19/17 [Last Taken 12/20/17 04: 00] Gabapentin [Neurontin 300 MG (*)] 300 mg PO HS 12/19/17 [Last Taken 12/19/17 21: 00] - NPO status NPO Since - Liquids (Date): 12/19/17 NPO Since - Liquids (Time): 18:00 NPO Since - Solids (Date): 12/19/17 NPO Since - Solids (Time): 20:00 - Anes Hx Anes Hx: no prior problems - Smoking Hx Smoking Status: Never smoked - Family Anes Hx Family Hx Anesthesia Complications: none ANE Labs/Vital Signs - Labs Result Diagrams: 12/20/17 06:35 - Vital Signs Blood Pressure: 121/67 Heart Rate: 55 Respiratory Rate: 16 O2 Sat (%): 91 Height: 175.26 cm Weight: 111.13 kg ANE Physical Exam - Airway Neck exam: FROM Mallampati Score: Class 2 Mouth exam: poor dentition - Pulmonary Pulmonary: no respiratory distress - Cardiovascular Cardiovascular: regular rate and rhythym - ASA Status ASA Status: III ANE Anesthesia Plan Anesthesia Plan: general endotracheal anesthesia, epidural
[2017-12-20] MEDS ORDERED: ceFAZolin 1 GM/5 ML SYR ONE ×2 (07:38→08:19)
[2017-12-20] MEDS ORDERED: HEPARIN 1000 UNIT/1 ML MDV ONE ×3 (07:38→08:19)
[2017-12-20] MEDS ORDERED: BUPIVACAINE 0.25% 30 ML SDV ONE (07:50)
[2017-12-20] MEDS ORDERED: HYDROCODONE/APAP 5/325 TAB PO PRN (08:18)
[2017-12-20] MEDS ORDERED: ACETAMINOPHEN 500 MG TAB PO PRN (08:18)
[2017-12-20] MEDS ORDERED: PROMETHAZINE HCL 25 MG/ML INJ IVP PRN (08:18)
[2017-12-20] MEDS ORDERED: oxyCODONE IR 5 MG TAB PO PRN (08:18)
[2017-12-20] MEDS ORDERED: NALOXONE HCL 0.4 MG/ML INJ IVP PRN ×2 (08:18→10:19)
[2017-12-20] MEDS ORDERED: LR 500 ML IV PRN (08:18)
[2017-12-20] MEDS ORDERED: ONDANSETRON 4 MG/2 ML VIAL IVP PRN ×3 (08:18→11:24)
[2017-12-20] MEDS ORDERED: BUPIVACAINE 0.5% 30 ML SDV ONE (08:18)
[2017-12-20] MEDS ORDERED: ALBUTEROL 3 ML DEYVIAL IH PRN (08:18)
[2017-12-20] MEDS ORDERED: HYDROmorphONE/DILAUDID 1 MG/ML INJ IVP PRN (08:18)
[2017-12-20] MEDS ORDERED: LABETALOL HCL 5 MG/ML 20 ML MDV IVP PRN (08:18)
[2017-12-20] MEDS ORDERED: fentaNYL 100 MCG/2 ML INJ IVP PRN (08:18)
[2017-12-20] MEDS ORDERED: METOCLOPRAMIDE 10 MG/2 ML VIAL IVP PRN ×2 (08:18→10:19)
--- NOTE | 2017-12-20 08:18 | POSTANESTH ---
Post Anesthetic Evaluation Cardiovascular Status: Normal, Stable Respiratory Status: Normal, Stable Level of Consciousness/Mental Status: Can Participate in Eval, Alert and Oriented Pain Control: Adequate, Prn Tx Ordered Nausea/Vomiting Control: Adequate, Prn Tx Ordered Complications Possibly Related to Anesthesia: None Noted
[2017-12-20] MEDS ORDERED: MIDAZOLAM 2 MG/2 ML VIAL ONE (08:19)
[2017-12-20] MEDS ORDERED: LIDOCAINE 1% 2 ML INJ ONE (08:53)
[2017-12-20] MEDS: BUPIVACAINE 0.5% 30 ML SDV ONE ×2 (09:30→15:26)
[2017-12-20] MEDS ORDERED: NARCOTIC DRIP BAG-TOTAL ALL TYPES EP PRN (10:19)
[2017-12-20] MEDS ORDERED: diphenhydrAMINE 25 MG CAP PO PRN (10:19)
[2017-12-20] MEDS: HYDROmorph 10MCG/ML&BUP 0.1% in 100ML NS EP SCH (11:22)
[2017-12-20] MEDS ORDERED: TRIAMCINOLONE 0.1% 15 GM CRTUBE TP PRN (11:25)
[2017-12-20] MEDS ORDERED: PANTOPRAZOLE SODIUM 40 MG VIAL IVP ONE ×2 (11:26→15:45)
[2017-12-20] MEDS ORDERED: D50W 25 GM/50 ML SYR IVP PRN (11:27)
--- NOTE | 2017-12-20 12:24 | POSTOPPROG ---
Post Op Note Date of Operation: 12/20/17 Surgeon: Joey Redman Director Regulatory Compliance: Mabel Farley Anesthesiologist: Casper Taylor Anesthesia: GET(General Endotracheal) Pre-op Diagnosis: recurrent GERD, belching, hx hiatal hernia repair c Jameson Post-op Diagnosis: same Procedure: laparoscopic Jameson fundoplication revision, lysis of adhesions Findings: released wrap, created loose wrap, no recurrent hernia, +adhesions Inf/Abcess present in the surg proc area at time of surgery?: No EBL: Minimal Complications: none
[2017-12-20] MEDS: INSULIN REGULAR HUMAN 100 UNIT/ML UNIT SC SCH ×2 (13:33→18:56)
[2017-12-20] MEDS: KETOROLAC 30 MG/1 ML SDV IVP SCH ×2 (13:55→19:07)
[2017-12-20] MEDS: NS 1,000 ML IV SCH ×2 (13:56→21:52)
[2017-12-20] MEDS ORDERED: D50W 25 GM/50 ML VIAL IVP PRN (18:00)
[2017-12-20] MEDS ORDERED: INSULIN LISPRO 100 UNIT/ML SC SCH (18:30)
[2017-12-20] MEDS ORDERED: GABAPENTIN 300 MG CAP PO SCH (21:00)
[2017-12-20] MEDS: DILTIAZEM CD 120 MG CAP PO SCH (21:41)
[2017-12-21] MEDS: KETOROLAC 30 MG/1 ML SDV IVP SCH ×2 (00:58→06:14)
[2017-12-21] MEDS: HYDROmorph 10MCG/ML&BUP 0.1% in 100ML NS EP SCH (01:02)
[2017-12-21] MEDS ORDERED: LEVOTHYROXINE 50 MCG TAB PO SCH (06:00)
[2017-12-21] MEDS: DILTIAZEM CD 120 MG CAP PO SCH (06:26)
[2017-12-21] MEDS ORDERED: FUROSEMIDE 40 MG TAB PO SCH (09:00)
[2017-12-21] MEDS ORDERED: DILTIAZEM CD 180 MG CAP PO SCH (09:00)
[2017-12-21] MEDS ORDERED: DC NARCS MISC SCH (09:00)
[2017-12-21] MEDS ORDERED: NEBIVOLOL HCL 5 MG TAB PO SCH (09:00)
[2017-12-21] MEDS ORDERED: REGARDING ANTICOAG MISC SCH (09:00)
[2017-12-21] MEDS ORDERED: GABAPENTIN 300 MG CAP PO SCH (09:00)
[2017-12-21] MEDS ORDERED: DULoxetine 60 MG CAP PO SCH (09:00)
[2017-12-21] MEDS ORDERED: POTASSIUM CL 10 MEQ TAB PO SCH (09:00)
[2017-12-21] MEDS ORDERED: ATORVASTATIN CALCIUM 20 MG TAB PO SCH (09:00)
--- NOTE | 2017-12-21 10:13 | SOAPPROG ---
SOAP Progress Note Assessment/Plan: Assessment: 72 y/o F s/p lap stephanie fundoplication revision POD #1 S: Doing well overall. Does endorse mild throat pain. Denies nausea. Not passing gas or BM yet. O: Alert Afebrile RRR No increased WOB Abdomen: soft, mildly ttp, normoactive BS Plan: Swallow study today. Advance diet to full liquids after swallow study. Dispo home later today. 12/21/17 10:11 Objective: Vital Signs Temp Pulse Resp BP Pulse Ox 36.8 C 62 16 95/54 L 94 12/21/17 07:12 12/21/17 07:12 12/21/17 07:12 12/21/17 07:12 12/21/17 07:12 Laboratory Results 12/21/17 05:04 12/21/17 05:04 12/20/17 12/21/17 12/22/17 05:59 05:59 05:59 Intake Total 1080 Output Total 740 1400 Balance 340 -1400 ICD10 Worksheet Patient Problems: Problems Problem Status Onset Supraventricular tachycardia Acute
--- NOTE | 2017-12-21 11:08 | PDPAINCON ---
Pain Management Consultation Patient referred by : Feroz - Subjective Pain is: no pain at all Side effects include: No drowsy, No itchiness, No nausea, No rash Activity: able to ambulate - Objective Technique: continuous epidural Site: thoracic Continuous infusion: bupivicaine (bupi 0.1% with hydromorphone 10 mcg/ml) Continuous rate (ml/hr): 6 Catheter site: clean, dry, intact, no erythema/edema/exudate Sensory and motor exam: consistent with block Vital signs: stable - Assessment/Plan Assessment/Plan: pain well-controlled, continue current mgmt (catheter d/c'ed today in preparation for discharge home. Tip intact. No complications.) Additional comments: POD #1 s/p lap Jameson fundoplication with T8-[address]. Pain well controlled, did not require additional analgesics. D/c'ed epidural today for dispo home.
[2017-12-21 11:14] VITALS: BP 90/47
--- NOTE | 2017-12-21 17:25 | ASMTCMCOM ---
CM Note CM Note Notes: Pt is a 72 y/o female admitted for a s/p lap stephanie fundoplication revision POD #1. Pt will most likely d/c independent when medically stable. No therapies ordered at this time. CM available for changes. Plan: Independent Date Signed: 12/21/2017 10:45 AM Electronically Signed By:STEPHANIE Wells
--- NOTE | 2017-12-27 14:52 | GDS ---
DISCHARGE DIAGNOSES: 1. History of hiatal hernia repair with Jameson fundoplication. 2. Dysphagia. 3. History of gastroesophageal reflux disease. 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 PROCEDURES: Laparoscopic Jameson fundoplication revision with lysis of adhesions. INTRAOPERATIVE FINDINGS: We released the patient's wrap. We created a new loose wrap. There was no recurrent hernia. She had very significant adhesions. Please see Dr. Redman' operative note for det ails. SPECIAL TESTS: Cervical esophagram demonstrated no leak of contrast. HOSPITAL COURSE: The patient is a 72-year-old female with a history of GERD, with a large hiatal her allen that was repaired with a Jameson fundoplication. She was experiencing persistent dysphagia. She had an upper GI series, and it was decided to bring her to the operating room for revision. She unde rwent the procedure per above. It was uncomplicated, and she tolerated it well. There were no compl ications. The patient's postoperative course was relatively uneventful. She requested to manage her own medici navya, as well as her diabetes medicines. She agreed to get assistance from her primary care team with Dr. Violet Rock as needed. She was started on clears. We obtained an esophagram to rule out leak. This was negative, and so her diet was advanced further. DISCHARGE INSTRUCTIONS: The patient was discharged to home on postoperative day 1 in stable conditio n with plans for outpatient followup. /[id number]/MODL
--- NOTE | 2018-01-01 17:07 | GOP ---
DATE OF OPERATION: 12/20/2017 SURGEON: Joey Redman MD SPRING WINDER: MEI Segundo. ANESTHESIOLOGIST: Dr. Taylor. PREOPERATIVE DIAGNOSIS: Recurrent gastroesophageal reflux disease. POSTOPERATIVE DIAGNOSIS: 1. Recurrent gastroesophageal reflux disease. 2. Probable slipped Jameson fundoplication. PROCEDURE PERFORMED: Laparoscopic Jameson fundoplication revision with lysis of adhesions. FINDINGS: The patient was found to have a Jameson fundoplication wrap angled up almost to the anterio r abdominal wall and the left lateral segment of the liver, making it somewhat obstructive to the upp er stomach. The Jameson wrap had slipped slightly down with this adhesive twisting. At completion of the procedure, there was good, wide open flow and easy passage of bougie dilator. ESTIMATED BLOOD LOSS: Negligible. There were no complications. DESCRIPTION OF PROCEDURE: Patient was taken to the operating room, where she received satisfactory g eneral endotracheal anesthesia by Dr. Taylor. She was placed in supine position, prepped and drape d in usual sterile fashion. She was in the split leg position, as well. Epigastric incision was mad e. A Veress needle inserted. Pneumoperitoneum was established. Trocars were introduced, laparoscop e introduced. Good visualization was obtained. Four other trocars were placed in the upper abdomen under direct vision. Tedious dissection ensued, dissecting the Jameson wrap off the left lateral segm ent of the liver. This was carefully done. As noted, wrap appeared to be displaced and pulled down by these adhesions. The wrap was carefully undone, with the sutures being divided, which allowed the fundoplication to relax somewhat. The esophagus was carefully dissected free and encircled. It kathy eared to be intact. The crural closure appeared to be intact from previous surgery. The fundoplicat ion was freed up very carefully, and the fundoplication wrap was recreated, creating a loose, floppy wrap by suturing the anterior wall of the stomach to the anterior wall of the esophagus, and then to the fundoplication wrap. This was also anchored to the diaphragmatic leisa. This was done with 2 sep arate 0 Ethibond sutures. Bougie dilator could be readily passed through this fundoplication wrap an d there appeared to be no residual obstruction. The wound was irrigated. Hemostasis was assured. T rocars removed under direct vision. Trocar sites were closed with 4-0 Monocryl subcuticular stitch f or the skin. All layers infiltrated with 0.5% Marcaine. /[id number]/MODL
== END 2017-12-21 16:30 | disposition home or self-care (01) ==
LOC: F3N 05:45 → F3E 10:47
PROVIDERS: ADMIT Surgery; ATTEND Surgery
PROC: 0DV44CZ Restriction of Esophagogastric Junction with Extraluminal Device, Percutaneous Endoscopic Approach (ICD-10-PCS; principal; 2017-12-20 07:15)
DX: R13.10 Dysphagia, unspecified (principal); K21.9 Gastro-esophageal reflux disease without esophagitis
CPT/HCPCS: 43281; 74220; J0690; J1170; J1885; J2250; J2704; J3010